=== PATIENT | male | born 1965 | race Caucasian/White ===

== ENCOUNTER → 2016-06-01 | Day surgery (SDC) | payer BC ==
[2016-06-01] VITALS (8 sets, daily range): BP systolic 105–132; BP diastolic 67–74
[~2016-06-01] VITALS: Ht 175.3 cm; Wt 93.0 kg
[~2016-06-01] MED LIST: ANUSOL-HC25 MG RECTAL; BENADRYL25 MG ORAL; DiphenhydrAMINE 50mg/ml Inj IVP PRN; IBUPROFEN600 MG ORAL; IMODIUM A-1 MG/7.5 M PO; IMODIUM MULTI-1 EACH PO; LR 1000ml 1,000 ML IVLG SCH; LR 1000ml ONE; Labetalol 5mg/ml 20ml vial IV PRN; Lidocaine 1% MPF 10mg/ml 5ml ONE; NORCO 10/3251 EA ORAL; OMEPRAZOLE20 M2 ORAL; Propofol 10mg/ml 20ml IV ONE; TAMSULOSIN HCL0.4 MG ORAL
--- NOTE | 2016-06-01 09:48 | Anethesia Preoperative Eval ---
Anesthesia Pre-op PMH/ROS General Date of Evaluation: Jun 01, 2016 Anesthesiologist: Suleman ASA Score: ASA 2 Mallampati Score Class I : Soft palate, uvula, fauces, pillars visible Class II: Soft palate, uvula, fauces visible Class III: Soft palate, base of uvula visible Class IV: Only hard plate visible Mallampati Classification: Class II Surgeon: Darrell Diagnosis: GERD/Screening Surgical Procedure: EGD/ colonoscopy Anesthesia History: none Family History: no anesthesia problems Allergies: Coded Allergies: IBUPROFEN (Verified Allergy, Intermediate, 06/01/16) HIVES Medications: see eMAR Past Medical History Cardiovascular: Reports: other - HLD, Denies: CAD, HTN, MS, arrhythmia, valve dz Pulmonary: Reports: asthma, Denies: COPD, [place], other Gastrointestinal/Genitourinary: Reports: GERD, other - IBS, Denies: CRI, ESRD Neurologic/Psychiatric: Denies: CVA, TIA, dementia, depression/anxiety, other Endocrine: Denies: DM, hypothyroidism, other, steroids HEENT: Denies: [place] (L), [place] (R), cataract (L), cataract (R), glaucoma, other Hematology/Immune: Denies: DVT, anemia, bleeding disorder, other Musculoskeletal/Integumentary: Denies: DDD, DJD, OA, RA, edema, other Other: other - overweight PSxH Narrative: Sinus sx Anesthesia Pre-op Phys. Exam Physician Exam Last Vital Signs Date Time Temp Pulse Resp B/P Pulse Ox O2 Delivery O2 Flow Rate FiO2 06/01/16 09:35 98.1 80 20 116/69 96 Room Air Constitutional: NAD Cardiovascular: RRR Respiratory: CTA Airway Exam Mallampati Score: Class II MO: full ROM: full Teeth: intact Anesthesia Pre-op A/P Labs see chart Studies Pre-op Studies: EKG - sr Risk Assessment & Plan Assessment: ASA II Plan: MAC Status Change Before Surgery: No Pre-Antibiotics Drug: N/A SARAH PEDROZA M.D. Jun 01, 2016 09:48
--- NOTE | 2016-06-01 10:04 | Immediate Post-Op Evaluation ---
Immediate Post-Op Evalulation Immediate Post-Op Evalulation Procedure: EGD and colonoscopy Date of Evaluation: Jun 01, 2016 Time of Evaluation: 11:29 IV Fluids: 600 Blood Products: 0 Estimated Blood Loss: 0 Urinary Output: 0 Blood Pressure Systolic: 119 Blood Pressure Diastolic: 69 Pulse Rate: 88 Respiratory Rate: 17 O2 Sat by Pulse Oximetry: 98 Temperature (Fahrenheit): 97.4 Pain Score (1-10): 0 Nausea: No Vomiting: No Complications 0 Patient Status: awake, reacts, patent, none Hydration Status: adequate Drug: N/A SARAH PEDROZA M.D. Jun 01, 2016 10:04
--- NOTE | 2016-06-01 10:05 | 48 Hour Post Anesthesia Eval ---
Post Anesthesia Evaluation Procedure: EGD and colonoscopy Date of Evaluation: Jun 01, 2016 Blood Pressure Systolic: 117 0: 88 Pulse Rate: 89 Respiratory Rate: 17 O2 Sat by Pulse Oximetry: 99 Airway: patent Nausea: No Vomiting: No Pain Intensity: 0 Hydration Status: adequate Cardiopulmonary Status: at baseline Mental Status/LOC: patient returned to baseline Post-Anesthesia Complications: 0 Follow-up care needed: ready to discharge SARAH PEDROZA M.D. Jun 01, 2016 10:05
--- NOTE | 2016-06-01 10:22 | Short Stay Surgery H&P ---
History of Present Illness History of Present Illness Chief Complaint screening colon HPI Austin Jacome is a 50 year old male who was admitted on for Gerd,Colon Screening Patient History Allergies: Coded Allergies: IBUPROFEN (Verified Allergy, Intermediate, 06/01/16) HIVES PAST MEDICAL HISTORY: (1) Kidney stone (2) Diverticulosis (3) Hemorrhoid (4) Elevated cholesterol (5) Irritable bowel syndrome (IBS) (6) Calculus of kidney and ureter Past Surgeries: Social History: Medication History Scheduled Loperamide Hcl/Simethicone (Imodium Multi-Symptom Rel Cplt), 1 EACH PO PRN, ( Reported) Omeprazole (Omeprazole), Unknown Dose ORAL DAILY, (Reported) Scheduled PRN Diphenhydramine Hcl* (Benadryl*), 25 MG ORAL Q6H PRN for Itching, (Reported) Miscellaneous Medications Loperamide Hcl (Imodium A-D), 1 MG PO, (Reported) Review of Systems Cardiovascular: Reports: no symptoms Respiratory: Reports: no symptoms Skeletal: Reports: no symptoms Gastrointestinal: Reports: no symptoms Genitourinary: Reports: no symptoms Neurologic: Reports: no symptoms Endocrine: Reports: no symptoms Hematologic: Reports: no symptoms Physical Exam Vital Signs Last Vital Signs Date Time Temp Pulse Resp B/P Pulse Ox O2 Delivery O2 Flow Rate FiO2 06/01/16 09:35 98.1 80 20 116/69 96 Room Air Skin: normal HENT: normal Heart: normal Lungs: normal Abdomen: normal Extremities: normal Plan Plan of Care colonoscopy Final Diagnosis: Attestation Are the patient's medical conditions optimized for surgery? Attestation Response: yes MARY TIJERINA Jun 01, 2016 10:22
--- NOTE | 2016-06-01 10:22 | Pre-Procedure Note/Attestation ---
Pre-Procedure Note/Attestation Complete Prior to Procedure Planned Procedure: not applicable Procedure Narrative: colonoscopy Indications for Procedure Pre-Operative Diagnosis: screening Attestation I attest that I discussed the nature of the procedure; its benefits; risks and complications; and alternatives (and the risks and benefits of such alternatives ), prior to the procedure, with the patient (or the patient's legal patient accounting representative). I attest that, if there was a reasonable possibility of needing a blood transfusion, the patient (or the patient's legal patient accounting representative) was given the [facility] standardized written summary, pursuant to the [place] Blood Safety Act ([place] Health and Safety Code # 1645, as amended). I attest that I re-evaluated the patient just prior to the surgery and that there has been no change in the patient's H&P, except as documented below: MARY TIJERINA Jun 01, 2016 10:22
--- NOTE | 2016-06-01 19:58 | Procedure Note ---
DATE OF PROCEDURE: 06/01/2016 SURGEON: Ramon Ramírez M.D. PROCEDURE: Upper endoscopy with biopsy and colonoscopy with biopsy. ANESTHESIA: Per Dr. Carrillo. INSTRUMENT: Olympus adult flexible upper endoscope and colonoscope. INDICATION: 1. Screening colonoscopy evaluation. 2. Chronic diarrhea. REASON FOR PROCEDURE: The procedure, risks, benefits, and possible consequences, including hemorrhage, aspiration, perforation and infection, and alternative treatments, were explained to the patient/legal guardian by Dr. Ramon Ramírez and the patient/legal guardian understood and accepted these risks. DESCRIPTION OF THE PROCEDURE: After informed consent was obtained and the patient was adequately sedated, Olympus upper endoscope was advanced from mouth into the second portion of the duodenum and retroflexion was performed in the stomach. The patient had evidence of diffuse gastritis. Random biopsy from antrum of the stomach was obtained to rule out H. pylori infection. Also, there was evidence of a polyp in the antrum, which was also biopsied in this random biopsy of the stomach. Random biopsy from the duodenum also was obtained for further evaluation of cause of diarrhea. At this time, the upper endoscope was retrieved and the patient was turned over for colonoscopy. First, a rectal exam was performed. The patient had evidence of large external hemorrhoids and also internal hemorrhoids. Then, the scope was advanced from the rectum into the cecum and then subsequently into the terminal ileum. Quality of prep was very good. The patient had some lymphoid aggregates in the terminal ileum, which was biopsied. Random biopsy from the right and left colon was also obtained for evaluation of the chronic diarrhea. The patient had a total of three polyps in this colonoscopy examination, two in the transverse colon, which were small and removed with the cold biopsy forceps technique and one larger one, which was measured about 5 mm removed with the cold snare polypectomy, which was in the descending colon. Retroflexion of rectum showed evidence of internal hemorrhoids. SUMMARY OF FINDINGS: 1. Gastritis with gastric polyps, status post biopsy. 2. Status post random biopsy of the duodenum for workup of diarrhea. 3. Three colonic polyps removed, see above for details. 4. Lymphoid aggregates in the terminal ileum, which was biopsied. 5. Internal and external hemorrhoids. RECOMMENDATIONS: Followup biopsies and treat accordingly. Ramon Dana Ramírez DR: EVA JOB#: [id number] CC:
--- NOTE | 2016-06-02 13:55 | Endoscopy Procedure Note ---
Endoscopy Procedure Note Indication for Procedure: screening colon, chronic diarrhea Procedures Performed: EGD, colonoscopy Operative Findings/Diagnosis: colon polyps Specimen: yes Pt Tolerated Procedure Well: Yes Estimated Blood Loss: none Anesthesiologist: yohannes Anesthesia: MAC Implant(s) used?: No 50 yrs or older w/o bx or poly: No 10yrs. F/U not recommended: Yes If not recommended, why?: Above average risk 10 yrs. F/U needed: Yes 18 years or older w/prev. colo: Yes <3yrs. since last colonoscopy: No MARY TIJERINA Jun 02, 2016 13:55
--- NOTE | 2016-06-30 15:40 | Cardiology Report ---
APPROVED REPORT EKG Measurement Heart [id number] Normal sinus rhythm Normal ECG
== END | disposition home or self-care (01) ==
LOC: GAS 09:02
DX: Z12.11 Encounter for screening for malignant neoplasm of colon (principal); R19.7 Diarrhea, unspecified; D12.3 Benign neoplasm of transverse colon; D12.4 Benign neoplasm of descending colon; K64.4 Residual hemorrhoidal skin tags; K64.8 Other hemorrhoids; K29.50 Unspecified chronic gastritis without bleeding; K21.9 Gastro-esophageal reflux disease without esophagitis; E78.00 Pure hypercholesterolemia, unspecified; J45.909 Unspecified asthma, uncomplicated; E66.3 Overweight; Z87.442 Personal history of urinary calculi; Z88.6 Allergy status to analgesic agent
CPT/HCPCS: 43239; 45380; 45385; 93005; J2704; J7120; 94003; 94150

== ENCOUNTER → 2016-07-02 | Outpatient (CLI) | payer BC ==
[~2016-07-02] MED LIST changes: -DiphenhydrAMINE 50mg/ml Inj IVP PRN; -LR 1000ml 1,000 ML IVLG SCH; -LR 1000ml ONE; -Labetalol 5mg/ml 20ml vial IV PRN; -Lidocaine 1% MPF 10mg/ml 5ml ONE; -Propofol 10mg/ml 20ml IV ONE
--- NOTE | 2016-07-02 14:18 | GI Progress Note ---
Assessment/Plan Problems: (1) Irritable bowel syndrome (IBS) ICD Codes: K58.9 - Irritable bowel syndrome without diarrhea SNOMED: 06782839, 82361101 (2) Colonic polyp ICD Codes: K63.5 - Polyp of colon SNOMED: 04218342 (3) Hemorrhoid ICD Codes: K64.9 - Unspecified hemorrhoids SNOMED: 58226991 (4) Elevated cholesterol ICD Codes: E78.00 - Pure hypercholesterolemia, unspecified SNOMED: 75100061 Status: unchanged Status Narrative Seen with Dr. Ramírez. Assessment/Plan EGD/colonoscopy reviewed with patient. Enterogram trial anusol HC RTC x 2 months repeat colon x 3 years. Subjective Subjective continues to have constant diarrhea, urges 5-6x per day Objective T 97.6 BP 112/69 P 75 97 RA Denies weight loss General Appearance: no apparent distress, alert Cardiovascular: normal rate Respiratory/Chest: normal breath sounds, no respiratory distress Abdominal Exam: normal bowel sounds, non tender, soft Extremities: normal range of motion Objective Date of Service: 06/01/16 Endoscopy Procedure Note Indication for Procedure: screening colon, chronic diarrhea Procedures Performed: EGD, colonoscopy Operative Findings/Diagnosis: colon polyps MARY RAMÍREZ - Jun 02, 2016 13:55 Shanon Chaves N.P. Jul 02, 2016 14:18
[2016-07-02 16:32] VITALS: BP 112/69
== END | disposition home or self-care (01) ==
LOC: PAN 13:33
DX: K58.9 Irritable bowel syndrome, unspecified (principal); K63.5 Polyp of colon; K64.9 Unspecified hemorrhoids; E78.00 Pure hypercholesterolemia, unspecified
CPT/HCPCS: 99211

== ENCOUNTER → 2016-08-19 | Outpatient (CLI) | payer BC ==
--- NOTE | 2016-08-19 15:42 | GI Progress Note ---
Assessment/Plan Problems: (1) Colonic polyp ICD Codes: K63.5 - Polyp of colon SNOMED: 72280739 (2) Irritable bowel syndrome (IBS) ICD Codes: K58.9 - Irritable bowel syndrome without diarrhea SNOMED: 80865152, 05314371 (3) Hemorrhoid ICD Codes: K64.9 - Unspecified hemorrhoids SNOMED: 42071166 (4) Small intestinal bacterial overgrowth ICD Codes: K63.89 - Other specified diseases of intestine SNOMED: 201686799 Status: unchanged Status Narrative Seen with Dr. Ramírez. Assessment/Plan EGD/colonoscopy reviewed with patient. ordered Breath Test [facility] cont Enterogram anusol HC prn RTC post results repeat colon x 3 years. Endoscopy Procedure Note Indication for Procedure: screening colon, chronic diarrhea Procedures Performed: EGD, colonoscopy Operative Findings/Diagnosis: colon polyps MARY RAMÍREZ - Jun 02, 2016 13:55 Subjective Subjective diarrhea, 8x daily abdominal pain Viberzi did not help Enterogram helped more than 50% of the time Anusol provided temporary relief. Objective T 97.6 BP 99/59 P 74 97 RA General Appearance: no apparent distress, alert Cardiovascular: normal rate Respiratory/Chest: normal breath sounds, no respiratory distress Abdominal Exam: normal bowel sounds, non tender, soft Extremities: normal range of motion Shanon Chaves N.P. Aug 19, 2016 15:42
== END | disposition home or self-care (01) ==
LOC: PAN 13:48
DX: K63.5 Polyp of colon (principal); K64.9 Unspecified hemorrhoids; K63.89 Other specified diseases of intestine; K58.0 Irritable bowel syndrome with diarrhea
CPT/HCPCS: 99211

== ENCOUNTER 2016-11-24 10:38 | Outpatient (CLI) | payer BC ==
--- NOTE | 2016-11-24 11:11 | GI Progress Note ---
Assessment/Plan Problems: (1) Small intestinal bacterial overgrowth ICD Codes: K63.89 - Other specified diseases of intestine SNOMED: 956648529 (2) Irritable bowel syndrome (IBS) ICD Codes: K58.9 - Irritable bowel syndrome without diarrhea SNOMED: 57210972, 34146156 (3) Diarrhea ICD Codes: R19.7 - Diarrhea, unspecified SNOMED: 85593932 Status: stable Status Narrative Seen with . Assessment/Plan SIBO positive >> rx Xifaxan RTC x 1 month post tx Subjective Subjective abdominal pain diarrhea Objective T 97.4 BP 108/68 P 58 General Appearance: no apparent distress, alert Cardiovascular: normal rate Respiratory/Chest: normal breath sounds, no respiratory distress Abdominal Exam: normal bowel sounds, non tender, soft Extremities: normal range of motion, non-tender, normal inspection Shanon Chaves N.P. Nov 24, 2016 11:10
[2016-11-24 12:49] VITALS: BP 108/68
== END 2016-11-24 11:10 | disposition home or self-care (01) ==
LOC: PAN 10:38
DX: K58.9 Irritable bowel syndrome, unspecified (principal); A04.8 Other specified bacterial intestinal infections; R19.7 Diarrhea, unspecified
CPT/HCPCS: 99211

== ENCOUNTER 2019-04-12 06:38 | Day surgery (SDC) | payer BC ==
[2019-04-12] VITALS (8 sets, daily range): BP systolic 98–110; BP diastolic 53–77
[~2019-04-12] VITALS: Ht 172.7 cm; Wt 87.1 kg
[2019-04-12] MEDS ORDERED: LR 1000ml 1,000 ML IVLG SCH (07:00)
[2019-04-12] MEDS ORDERED: Propofol 200mg/20ml IV ONE (08:00)
[2019-04-12] MEDS ORDERED: Lidocaine 1% MPF 10mg/ml 5ml ONE (08:00)
[2019-04-12] MEDS ORDERED: LR 1000ml ONE (08:00)
--- NOTE | 2019-04-12 08:09 | Pre-Procedure Note/Attestation ---
Pre-Procedure Note/Attestation Complete Prior to Procedure Planned Procedure: not applicable Procedure Narrative: EGD Colon Indications for Procedure Pre-Operative Diagnosis: Iron def anemia Attestation I attest that I discussed the nature of the procedure; its benefits; risks and complications; and alternatives (and the risks and benefits of such alternatives ), prior to the procedure, with the patient (or the patient's legal public utilities sales representative). I attest that, if there was a reasonable possibility of needing a blood transfusion, the patient (or the patient's legal public utilities sales representative) was given the [facility] standardized written summary, pursuant to the [place] Blood Safety Act ([place] Health and Safety Code # 1645, as amended). I attest that I re-evaluated the patient just prior to the surgery and that there has been no change in the patient's H&P, except as documented below: Pennie Lewis MD Apr 12, 2019 08:09
--- NOTE | 2019-04-12 08:09 | Short Stay Surgery H&P ---
History of Present Illness History of Present Illness Chief Complaint see typed H&P HPI Austin Jacome is a 53 year old male who was admitted on for Abdominal Pain, Anemia Patient History Allergies: Coded Allergies: IBUPROFEN (Verified Allergy, Intermediate, 06/01/16) HIVES LATEX (Verified Allergy, Intermediate, skin irritation, 04/12/19) Medication History Scheduled Loperamide Hcl/Simethicone (Imodium Multi-Symptom Rel Cplt), 1 EACH PO PRN, ( Reported) Omeprazole (Omeprazole), Unknown Dose ORAL DAILY, (Reported) Scheduled PRN Diphenhydramine Hcl* (Benadryl*), 25 MG ORAL Q6H PRN for Itching, (Reported) Discontinued Medications Hydrocortisone Acetate* (Anusol-Hc*), 1 SUPP RECTAL TWICE A DAY, (Reported) Discontinued Reason: Pt stopped taking med Physical Exam Vital Signs Last Vital Signs Date Time Temp Pulse Resp B/P (MAP) Pulse Ox O2 Delivery O2 Flow Rate FiO2 04/12/19 07:27 97.7 77 20 103/56 100 Room Air Plan Attestation Are the patient's medical conditions optimized for surgery? Pennie Lewis MD Apr 12, 2019 08:09
--- NOTE | 2019-04-12 08:47 | Endoscopy Procedure Note ---
Endoscopy Procedure Note General Indication for Procedure: iron def anemia Procedures Performed: EGD, colonoscopy Operative Findings/Diagnosis: gastric polyp, int/ext rhoids Specimen: yes Pt Tolerated Procedure Well: Yes Estimated Blood Loss: none Anesthesia Anesthesiologist: Stefanie Anesthesia: MAC Medications Medication Given: see anesthesia record Inserted Devices Implant(s) used?: No GI Core Measures 50 yrs or older w/o bx or poly: Not Applicable 10yrs. F/U recommended: Not Applicable Pennie Lewis MD Apr 12, 2019 08:47
--- NOTE | 2019-04-12 08:48 | Brief Operative Note ---
Immediate Post Operative Note Operative Note Chief Complaint: iron def Pre-op Diagnosis: Iron def anemia Procedure: esophagogastroduodenoscopy colon Post-op Diagnosis: gastric polyp, int/ext rhoids Surgeon: alonzo Specimen: yes Complications: none Fluids: per anesthesia Implant(s) used?: No Pennie Lewis MD Apr 12, 2019 08:48
--- NOTE | 2019-04-12 08:53 | Immediate Post-Op Evaluation ---
Immediate Post-Op Evalulation Immediate Post-Op Evalulation Procedure: EGD/Colonoscopy Date of Evaluation: Apr 12, 2019 Time of Evaluation: 08:55 IV Fluids: 600 Blood Pressure Systolic: 105 Blood Pressure Diastolic: 64 Pulse Rate: 62 Respiratory Rate: 16 O2 Sat by Pulse Oximetry: 99 Temperature (Fahrenheit): 98.7 Nausea: No Vomiting: No Complications none Patient Status: awake, reacts, patent Hydration Status: adequate Drug: none Stefanie Carmona CRNA Apr 12, 2019 08:53
--- NOTE | 2019-04-12 09:00 | Anethesia Preoperative Eval ---
Anesthesia Pre-op PMH/ROS General Date of Evaluation: Apr 12, 2019 Time of Evaluation: 08:00 Anesthesiologist: Mathew ASA Score: ASA 2 Mallampati Score Class I : Soft palate, uvula, fauces, pillars visible Class II: Soft palate, uvula, fauces visible Class III: Soft palate, base of uvula visible Class IV: Only hard plate visible Mallampati Classification: Class II Surgeon: Jordi Diagnosis: Anemia Surgical Procedure: EGD/Colonoscopy Anesthesia History: none Family History: no anesthesia problems Allergies: Coded Allergies: IBUPROFEN (Verified Allergy, Intermediate, 06/01/16) HIVES LATEX (Verified Allergy, Intermediate, skin irritation, 04/12/19) Medications: see eMAR Patient NPO?: Yes NPO Date: Apr 12, 2019 NPO Time: 00:01 Past Medical History Cardiovascular: Denies: HTN, CAD, CT, valve dz, arrhythmia, other Pulmonary: Denies: asthma, COPD, [place], other Gastrointestinal/Genitourinary: Reports: GERD; Denies: CRI, ESRD, other Neurologic/Psychiatric: Denies: dementia, CVA, depression/anxiety, TIA, other Endocrine: Denies: DM, hypothyroidism, steroids, other HEENT: Denies: cataract (L), cataract (R), glaucoma, [place] (L), [place] (R), other Hematology/Immune: Reports: anemia; Denies: DVT, bleeding disorder, other Musculoskeletal/Integumentary: Denies: OA, RA, DJD, DDD, edema, other PMH Narrative: IBS PSxH Narrative: colonoscopy Anesthesia Pre-op Phys. Exam Physician Exam Last Vital Signs Date Time Temp Pulse Resp B/P (MAP) Pulse Ox O2 Delivery O2 Flow Rate FiO2 04/12/19 08:53 62 16 99 04/12/19 07:27 97.7 103/56 Room Air Constitutional: NAD Neurologic: CN 2-12 intact Cardiovascular: RRR Respiratory: CTA Gastrointestinal: S/NT/ND Airway Exam Mallampati Classification 2 Mallampati Score: Class II MO: full ROM: full Dentures: no upper, no lower Anesthesia Pre-op A/P Studies Pre-op Studies: EKG - SR Risk Assessment & Plan Plan: mac Status Change Before Surgery: No Pre-Antibiotics Drug: none Stefanie Carmona CRNA Apr 12, 2019 09:00
--- NOTE | 2019-04-12 09:55 | 48 Hour Post Anesthesia Eval ---
Post Anesthesia Evaluation Procedure: EGD/Colonoscopy Date of Evaluation: Apr 12, 2019 Time of Evaluation: 09:54 Blood Pressure Systolic: 108 0: 88 Pulse Rate: 55 Respiratory Rate: 14 O2 Sat by Pulse Oximetry: 98 Airway: patent Nausea: No Vomiting: No Hydration Status: adequate Cardiopulmonary Status: stable Mental Status/LOC: patient returned to baseline Post-Anesthesia Complications: none Follow-up care needed: N/A Stefanie Carmona CRNA Apr 12, 2019 09:55
--- NOTE | 2019-04-18 11:45 | Operative Note - Dictated ---
DATE OF OPERATION: 04/12/2019 GASTROENTEROLOGY PROCEDURE REPORT PROCEDURE: Upper gastrointestinal endoscopy with biopsy as well as colonoscopy with biopsy. SURGEON: Pennie Lewis M.D. ANESTHESIA: Please see the separate anesthesiologist notes for details. PRE-ENDOSCOPIC DIAGNOSES: 1. Iron deficiency. 2. Abdominal pain. POST-ENDOSCOPIC DIAGNOSES: 1. Diminutive gastric polyp, status post biopsy removal. 2. Status post random biopsies of the terminal ileum, right colon, left colon, rectum, esophagus, antrum, and duodenum. 3. Internal and external hemorrhoids. DESCRIPTION OF PROCEDURE: The procedure, its risks, indications, alternatives, and possible complications were explained to the patient and informed consent was obtained. The patient was then sedated in the left lateral decubitus position. A diagnostic upper endoscope was introduced through the oropharynx and advanced to the duodenum. The endoscope was then gradually withdrawn. The mucosa examined carefully. Examination of the upper gastrointestinal mucosa revealed a diminutive polyp in the gastric antrum, which was removed with the biopsy forceps. Random biopsies of the duodenum, antrum, and esophagus were also sent to pathology for review. Thereafter, rectal exam was done, which showed external hemorrhoids. The colonoscope was introduced into the rectum and advanced to 15 cm into the terminal ileum without difficulty. The colonoscope was then gradually withdrawn and the mucosa examined carefully. Examination of the mucosa did not reveal any mucosal abnormalities. Random biopsies of the terminal ileum, right colon, left colon, and rectum were sent to pathology for review. Retroflexed view of the rectum revealed internal hemorrhoids. The colonoscope was removed. The patient was sent to recovery in good condition. COMPLICATIONS: None. RECOMMENDATIONS: 1. Follow up biopsy results. 2. Long-term bowel regimen. 3. Outpatient followup. Pennie Lewis M.D. DR: LEONILA JOB#: [id number] CC: Pennie Lewis M.D.; Fax#: [phone]
== END 2019-04-12 10:05 | disposition home or self-care (01) ==
LOC: GAS 06:38
DX: R10.9 Unspecified abdominal pain (principal); K31.7 Polyp of stomach and duodenum; K64.8 Other hemorrhoids; D50.9 Iron deficiency anemia, unspecified; K64.4 Residual hemorrhoidal skin tags; K29.50 Unspecified chronic gastritis without bleeding; Z88.6 Allergy status to analgesic agent; Z91.040 Latex allergy status; K21.9 Gastro-esophageal reflux disease without esophagitis; Z86.010 Personal history of colon polyps
CPT/HCPCS: 43239; 45380; J2704; J7120; 94003; 94150

== ENCOUNTER 2019-04-27 19:03 | Inpatient (IN) | payer BC ==
[~2019-04-27] VITALS: Ht 172.7 cm; Wt 86.2 kg
[2019-04-27 19:20] VITALS: BP 120/80
--- NOTE | 2019-04-27 19:20 | NUR ---
ED Nurse Note: Pt walked in to ED for C/O ABD pain with blood in urine since this morning. PT is alert x4.
--- NOTE | 2019-04-27 19:29 | NUR ---
ED Nurse Note: Blood sample sent down to lab
--- NOTE | 2019-04-27 19:30 | NUR ---
ED Nurse Note: PT taken to CT
--- NOTE | 2019-04-27 19:37 | NUR ---
ED Nurse Note: BACK FROM CT
--- NOTE | 2019-04-27 19:37 | Emergency Room Report ---
History of Present Illness General Chief Complaint: Male Urogenital Problems Source: Patient (Wilma Ordoñez DO) Present Illness HPI Patient presents with complaints of seeing blood in his urine Patient also reports that he has been having nonspecific abdominal discomfort for the past several months saw his GI specialist and had upper and lower endoscopy recently patient was found to have polyps Otherwise denies any vomiting denies any diarrhea Denies any chest pain or shortness of breath denies any pain with urination Patient is not aware of his last hemoglobin count On further discussion reports that he does have bleeding from his external hemorrhoids off and on (Wilma Ordoñez DO) Allergies: Coded Allergies: IBUPROFEN (Verified Allergy, Intermediate, 06/01/16) HIVES LATEX (Verified Allergy, Intermediate, skin irritation, 04/12/19) Patient History Past Medical History: see triage record Reviewed Nursing Documentation: PMH: Agreed; PSxH: Agreed (Wilma Ordoñez DO) Nursing Documentation-PMH Hx Cardiac Problems: No Hx Asthma: Yes - MILD Hx Cancer: No Hx Gastrointestinal Problems: Yes Hx Neurological Problems: No (Wilma Ordoñez DO) Review of Systems All Other Systems: negative except mentioned in HPI (Wilma Ordoñez DO) Physical Exam Vital Signs Date Time Temp Pulse Resp B/P (MAP) Pulse Ox O2 Delivery O2 Flow Rate FiO2 04/27/19 19:13 98.1 86 16 120/80 (93) 98 Room Air Sp02 EP Interpretation: reviewed, normal General Appearance: well appearing, no apparent distress Head: normocephalic, atraumatic Eyes: bilateral eye PERRL, bilateral eye EOMI ENT: hearing grossly normal, normal pharynx, TMs + canals normal, uvula midline Neck: full range of motion, supple, no meningismus, no bony tend Respiratory: lungs clear, normal breath sounds, no rhonchi, no respiratory distress, no retraction, no accessory muscle use Cardiovascular #1: normal peripheral pulses, regular rate, rhythm, no edema, no gallop, no JVD, no murmur Gastrointestinal: normal bowel sounds, non tender, soft, no mass, no organomegaly, non-distended, no guarding, no hernia, no pulsatile mass, no rebound Rectal: other - Patient has report from colonoscopy revealing external hemorrhoids Genitourinary: no CVA tenderness Musculoskeletal: normal inspection Neurologic: motor strength/tone normal, safety inspector III-XII nml as tested, oriented x3 , sensory intact, responsive Psychiatric: mood/affect normal Skin: other - Nonspecific diffuse rash Lymphatic: normal inspection, no adenopathy (Wilma Ordoñez DO) Medical Decision Making Diagnostic Impression: Primary Impression: Anemia Additional Impression: External hemorrhoid ER Course Given the patient's history and presentation initial blood work was initiated Patient's hemoglobin count does return at 7.7 This is significantly different than the last test we have from 2012 Patient's GI specialist who performed a colonoscopy 9 days ago is being contacted at this time patient is hemodynamically stable acute transfusion has not been ordered however patient will require inpatient care Labs Test 04/27/19 19:20 04/27/19 19:29 Urine Color Pale yellow Urine Appearance Clear Urine pH 5 (4.5-8.0) Urine Specific [place] 1.025 (1.005-1.035) Urine Protein Negative (NEGATIVE) Urine Glucose (UA) Negative (NEGATIVE) Urine Ketones 1+ (NEGATIVE) Urine Blood Negative (NEGATIVE) Urine Nitrite Negative (NEGATIVE) Urine Bilirubin Negative (NEGATIVE) Urine Urobilinogen 1 MG/DL (0.0-1.0) Urine Leukocyte Esterase Negative (NEGATIVE) White Blood Count 8.7 K/UL (4.8-10.8) Red Blood Count 4.70 M/UL (4.70-6.10) Hemoglobin 7.7 G/DL (14.2-18.0) Hematocrit 27.9 % (42.0-52.0) Mean Corpuscular Volume 59 FL (80-99) Mean Corpuscular Hemoglobin 16.3 PG (27.0-31.0) Mean Corpuscular Hemoglobin Concent 27.5 G/DL (32.0-36.0) Red Cell Distribution Width 15.8 % (11.6-14.8) Platelet Count 409 K/UL (150-450) Mean Platelet Volume 6.0 FL (6.5-10.1) Neutrophils (%) (Auto) % (45.0-75.0) Lymphocytes (%) (Auto) % (20.0-45.0) Monocytes (%) (Auto) % (1.0-10.0) Eosinophils (%) (Auto) % (0.0-3.0) Basophils (%) (Auto) % (0.0-2.0) Differential Total Cells Counted 100 Neutrophils % (Manual) 55 % (45-75) Lymphocytes % (Manual) 30 % (20-45) Monocytes % (Manual) 3 % (1-10) Eosinophils % (Manual) 11 % (0-3) Basophils % (Manual) 1 % (0-2) Band Neutrophils 0 % (0-8) Platelet Estimate Adequate Platelet Morphology Normal Polychromasia 1+ Hypochromasia 2+ Anisocytosis 1+ Microcytosis 2+ Sodium Level 140 MMOL/L (136-145) Potassium Level 3.8 MMOL/L (3.5-5.1) Chloride Level 106 MMOL/L (98-107) Carbon Dioxide Level 27 MMOL/L (21-32) Anion Gap 7 mmol/L (5-15) Blood Urea Nitrogen 12 mg/dL (7-18) Creatinine 0.9 MG/DL (0.55-1.30) Estimat Glomerular Filtration Rate > 60 mL/min (>60) Glucose Level 102 MG/DL (74-106) Calcium Level 9.1 MG/DL (8.5-10.1) (Wilma Ordoñez DO) ER Course Patient signed out to me. He presents with possible hematuria. Labs show hemoglobin of 7.7. Last known hemoglobin here was in 2012 it was 15.6. Patient is hemodynamically stable. CT scan negative for any perforation. Unknown baseline since hemoglobin from 2012. Because of patient insurance, I will admit patient to service of Dr. Arthur/Dr. Abrams. Dr. Bacon paged by Dr. Ordoñez. no call back. (Juan Pablo Chaves MD) EKG Diagnostic Results Rate: normal Rhythm: NSR ST Segments: no acute changes (Wilma Ordoñez DO) Rhythm Strip Diag. Results EP Interpretation: yes Rate: 70 Rhythm: NSR, no PVC's, no ectopy (Wilma Ordoñez DO) Last Vital Signs Date Time Temp Pulse Resp B/P (MAP) Pulse Ox O2 Delivery O2 Flow Rate FiO2 04/27/19 19:13 98.1 86 16 120/80 (93) 98 Room Air Status: improved (Wilma Ordoñez DO) Status: unchanged (Juan Pablo Chaves MD) Disposition: ADMITTED INPATIENT Condition: Serious Wilma Ordoñez DO Apr 27, 2019 19:37 Juan Pablo Chaves MD Apr 27, 2019 22:19
[2019-04-27 19:49] LABS: ANION GAP 7 mmol/L (5-15); BLOOD UREA NITROGEN 12 mg/dL (7-18); CALCIUM 9.1 MG/DL (8.5-10.1); CARBON DIOXIDE 27 MMOL/L (21-32); CHLORIDE 106 MMOL/L (98-107); CREATININE 0.9 MG/DL (0.55-1.30); POTASSIUM 3.8 MMOL/L (3.5-5.1); SODIUM 140 MMOL/L (136-145)
[2019-04-27 19:50] LABS: HEMATOCRIT 27.9 % (42.0-52.0); HEMOGLOBIN 7.7 G/DL (14.2-18.0); MEAN CORPUSCULAR VOLUME 59 FL (80-99); PLATELET COUNT 409 K/UL (150-450); RED CELL DISTRIBUTION WIDTH 15.8 % (11.6-14.8); WHITE BLOOD COUNT 8.7 K/UL (4.8-10.8)
[2019-04-27 20:00] LABS: APPEARANCE,URINE CLEAR; BILIRUBIN, URINE NEGATIVE (NEGATIVE); COLOR,URINE PALE YELLOW; GLUCOSE, URINE (UA) NEGATIVE (NEGATIVE); KETONES,URINE 1+ (NEGATIVE); LEUKOCYTE ESTERASE ,URINE NEGATIVE (NEGATIVE); NITRITE,URINE NEGATIVE (NEGATIVE); PH,URINE 5 (4.5-8.0); PROTEIN,URINE NEGATIVE (NEGATIVE); UROBILINOGEN,URINE 1 MG/DL (0.0-1.0)
--- NOTE | 2019-04-27 20:03 | Diagnostic Imaging Report ---
Indication: Pain and hematuria Technique: Spiral acquisitions obtained through the abdomen and pelvis. No oral or IV contrast utilized, per urinary stone protocol. Multiplanar reconstructions were generated. Total dose length product 1651 mGycm. CTDIvol(s) 26 mGy. Dose reduction achieved using automated exposure control Comparison: 02/22/2013 Findings: No renal or ureteral calculi, hydronephrosis, or hydroureter demonstrated. Lack of IV contrast limits assessment of the renal parenchyma. No gross renal parenchymal mass or cyst demonstrated. The bladder is unremarkable. The prostate is mildly enlarged, measuring 5 cm transverse diameter. Lack of IV contrast limits assessment of the other solid organs. The liver demonstrates a fat attenuation lesion in segment 2 which measures 13 mm diameter. This demonstrates mostly fat attenuation but central attenuation is somewhat higher than the periphery. This was evident previously but smaller, previously measured 6 mm in diameter. No other focal liver lesions are demonstrated. The gallbladder, bile ducts, pancreas, spleen, adrenals are unremarkable. No retroperitoneal or mesenteric mass or adenopathy. No pelvic mass or adenopathy. There are scattered small colonic diverticula. The appendix is normal. No small bowel distention. The distal esophagus and stomach are unremarkable. There is a small somewhat unusual appearing duodenal diverticulum. No free or loculated intraperitoneal gas or fluid is evident. The included lung bases are clear. The bones demonstrate degenerative spondylosis changes Impression: 13 mm fat-containing left lobe liver lesion. Most likely a benign lipoma, but given interval growth since 2012 and central heterogeneity, the possibility of a liposarcoma should also be considered Negative for evidence of urinary stone disease or obstructive uropathy Mild prostatomegaly Colonic diverticulosis. No evidence of diverticulitis Duodenal diverticulum This agrees with the preliminary interpretation provided overnight by [facility] teleradiology service. The CT scanner at [facility] is accredited by the [employer] and the scans are performed using protocols designed to limit radiation exposure to as low as reasonably achievable to attain images of sufficient resolution adequate for diagnostic evaluation.
[2019-04-27 21:21] LABS: CREATINE KINASE 103 U/L (26-308)
--- NOTE | 2019-04-27 21:50 | NUR ---
ED Nurse Note: PT in bed resting. VSS
[2019-04-27 22:01] VITALS: BP 131/82
[2019-04-27 22:06] LABS: INR 1.1 (0.9-1.1)
[2019-04-27] MEDS ORDERED: Morphine Sulfate 2mg/ml Inj(IV/IM USE ONLY) IVP PRN (22:30)
[2019-04-27] MEDS ORDERED: Miralax 17gm pkt ORAL PRN (22:30)
[2019-04-27] MEDS ORDERED: Zolpidem 5mg tab ORAL PRN (22:30)
[2019-04-27] MEDS ORDERED: LORazepam Inj 2mg/ml 1ml IV PRN (22:30)
--- NOTE | 2019-04-27 23:04 | NUR ---
ED Nurse Note: PT brought up to med surg floor room 411-2 accompanied by administrative tech via gurney in stable condition. PT is alert x4. ambulatory. IV site to left AC remains intact. Report given to TIFFANIE Su. Belonging list signed off.
--- NOTE | 2019-04-27 23:25 | NUR ---
NURSE NOTES: Received patient from ED via gurney, report is given by Lorraine MORENO, patient is awake, alert, ambulatory, no acute distress noted, IV site is clean dry and intact, belongings list reviewed, items are accounted for, and signed, patient has a wallet with credit cards, ID and few dollars, prefers to keep in the room. Oriented patient to the room, call light is within reach, bed is lowered, locked, alarm is on. Will continue to monitor for comfort and safety.
[2019-04-28] VITALS: BP 128/87
[2019-04-28 04:00] VITALS: BP 114/79
--- NOTE | 2019-04-28 07:30 | NUR ---
NURSE NOTES: Received pt from FELICIA MORENO. Pt is eating breakfast. pt is in RA, no SOB or acute respiratory distress noted. pt has intact iv access LAC 20g SL. No complain of pain at this moment. all needs attended, bed is locked and is in the lowest position, call light within easy reach. will continue to monitor.
[2019-04-28 07:37] LABS: HEMATOCRIT 26.9 % (42.0-52.0); HEMOGLOBIN 7.5 G/DL (14.2-18.0); MEAN CORPUSCULAR VOLUME 58 FL (80-99); PLATELET COUNT 402 K/UL (150-450); RED BLOOD COUNT 4.64 M/UL (4.70-6.10); WHITE BLOOD COUNT 6.9 K/UL (4.8-10.8)
[2019-04-28 08:00] VITALS: BP 124/77
[2019-04-28 08:14] LABS: ALANINE AMINOTRANSFERASE 22 U/L (12-78); ALBUMIN 3.4 G/DL (3.4-5.0); ALKALINE PHOSPHATASE 51 U/L (46-116); ANION GAP 8 mmol/L (5-15); ASPARTATE AMINO TRANSFERASE 20 U/L (15-37); BILIRUBIN,TOTAL 0.2 MG/DL (0.2-1.0); BLOOD UREA NITROGEN 11 mg/dL (7-18); CALCIUM 8.8 MG/DL (8.5-10.1); CARBON DIOXIDE 26 MMOL/L (21-32); CHLORIDE 109 MMOL/L (98-107); CHOLESTEROL 103 MG/DL (< 200); CREATININE 0.9 MG/DL (0.55-1.30); HDL CHOLESTEROL 37 MG/DL (40-60); POTASSIUM 4.2 MMOL/L (3.5-5.1); SODIUM 143 MMOL/L (136-145); TRIGLYCERIDES 30 MG/DL (30-150)
[2019-04-28 12:00] VITALS: BP 109/67
--- NOTE | 2019-04-28 12:27 | NUR ---
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 98.0 HR 86 RR 16 B/P 120/86 H/H 7.7/27.9 ABD/PELVIC CT=13 mm fat-containing left lobe liver lesion. Most likely a benign lipoma, but given interval growth since 2012 and central heterogeneity, the possibility of a liposarcoma should also be considered IS: INSERT H/L TYPE AND CROSS ADMITTED TO MED/SURG @ 1511 MED/SURG STATUS DCP RETURN HOME
--- NOTE | 2019-04-28 12:34 | NUR ---
NURSE NOTES: Dr TIJERINA visited pt and is montesinos about HB 7.5 and other lab results an d V/S, no new order to RN, Dr he F/U. Will continue to monitor.
[2019-04-28 16:00] VITALS: BP 104/71
--- NOTE | 2019-04-28 17:34 | History & Physical ---
History and Physical History & Physicial Kulwant Abrams MD Apr 28, 2019 17:34
--- NOTE | 2019-04-28 18:00 | NUR ---
NURSE NOTES: Dr DAVIS visited pt and is aware about HB 7.5, no new order to RN.
--- NOTE | 2019-04-28 19:36 | NUR ---
HAND-OFF: Report given to FRANK MORENO. Pt is awake and stable. Endorsed no BM in my shift, F/U for OB.
--- NOTE | 2019-04-28 19:44 | NUR ---
NURSE NOTES: Received report from TIFFANIE De Oliveira patient in bed, awake and alert and verbally responsive. Breathing on room air. No respiratory distress noted. IV intact and asymptomatic. Bed in the lowest position and locked. call light within reach. will continue to provide plan of care.
[2019-04-28 20:00] VITALS: BP 97/57
[2019-04-28] MEDS ORDERED: Iron Sucrose 100 MG in NS 55 ML IV SCH (21:00)
--- NOTE | 2019-04-28 21:00 | Consultation ---
DATE OF CONSULTATION: 04/28/2019 GASTROENTEROLOGY CONSULTATION CONSULTING PHYSICIAN: Ramon Ramírez M.D. REFERRING PHYSICIAN: Kulwant Abrams M.D. CHIEF COMPLAINT: Anemia. HISTORY OF PRESENT ILLNESS: The patient with a history of chronic diarrhea, endoscopy and colonoscopy in the past. He had colon polyps in the past and H. pylori negative gastritis and the most recent endoscopy and colonoscopy in March [address] Lewis where they found fundic gland polyps, H. pylori negative gastritis and no other findings were found. The patient admitted actually with hematuria and was profoundly anemic. Hemoglobin in the 7 ranges, so GI consult was requested for evaluation. According to the patient, he was scheduled to get an outpatient capsule endoscopy. At this time, mainly his complaint was hematuria. PAST MEDICAL HISTORY: 1. History of chronic diarrhea. 2. Colonic polyps. 3. H. pylori negative gastritis. 4. Irritable bowel syndrome. 5. Small intestinal bacterial overgrowth. ALLERGIES: To ibuprofen, latex. MEDICATIONS: Please see medication reconciliation list. SOCIAL HISTORY: The patient denies any tobacco, alcohol, or drug abuse. FAMILY HISTORY: Noncontributory. REVIEW OF SYSTEMS: A 10-point review of systems was performed and pertinent positives in HPI. PHYSICAL EXAMINATION: VITAL SIGNS: Temperature 97.7, pulse 75, respirations 20, blood pressure is 124/77. HEENT: Normocephalic, atraumatic. Pale conjunctivae. NECK: Supple. No evidence of obvious lymphadenopathy. CARDIOVASCULAR: Regular rate and rhythm. Plus S1 and S2. LUNGS: Clear to auscultation bilaterally. ABDOMEN: Positive bowel sounds. Soft and nontender. No rebound. No guarding. No peritoneal sign. EXTREMITIES: No cyanosis. No clubbing. No edema. LABORATORY DATA: White count 6.9, hemoglobin 7.5, hematocrit 26, and platelet count is 402,000. Chem-7 is grossly normal. ASSESSMENT AND PLAN: This is a 53-year-old male with anemia, possibly secondary to hematuria, status post recent endoscopy and colonoscopy by Dr. Lewis. We recommend to send the stool for OB. Recommend Urology evaluation for hematuria. Monitor hemoglobin and hematocrit , transfuse to keep hemoglobin above 7. We will also recommend repeating iron panel. I want to thank Dr. Abrams for this kind referral. Ramon Dana Ramírez DR: ALAN JOB#: [id number] CC: Kulwant Abrams M.D.; Fax#: [phone]
[2019-04-29] VITALS: BP 113/67
--- NOTE | 2019-04-29 00:15 | History and Physical Report ---
DATE OF ADMISSION: 04/27/2019 CHIEF COMPLAINT: Severe anemia. HISTORY OF PRESENT ILLNESS: This is a 53-year-old gentleman with past medical history significant for IBS, history of asthma, and dyslipidemia, who has presented to the hospital as per the request by Dr. Pennie Lewis after it was noted that the patient has severe anemia. The patient was recently complaining of abdominal discomfort and it been going on for over a month and he had esophagogastroduodenoscopy and colonoscopy done before by Dr. Lewis, which noted the patient has a polyp status post polypectomy. Blood work was noted. The patient became very anemic and subsequently, the patient was advised to take some iron pills. However, the patient started having abdominal discomfort associated with nausea. No vomiting and the patient subsequently was advised to come to the emergency room for further evaluation and possible blood transfusion. Shortly after initial evaluation in the emergency room, the patient was noted to have hemoglobin of 7.7 and subsequently, the patient was admitted to the hospital with severe anemia, possibly due to the GI bleed. PAST MEDICAL HISTORY/PAST SURGICAL HISTORY: As above history of IBS, history of recent polypectomy, asthma, and dyslipidemia. MEDICATIONS: Please refer to medication reconciliatoin. ALLERGIES: Ibuprofen and latex. SOCIAL HISTORY: Denies any smoking, alcohol, or drugs. FAMILY HISTORY: Noncontributory. REVIEW OF SYSTEMS: Mostly as above. Denies any dysuria, frequency, or hematuria. Denies any bright red blood per rectum. Denies any loss of consciousness, however, feeling weak and tired. Denies any palpitation. Denies any fall or head trauma. PHYSICAL EXAMINATION: VITAL SIGNS: On admission from the ER is significant for temperature 98.1, pulse of 86, respirations 16, and blood pressure of 120/80. GENERAL: The patient is awake, responsive, and in no acute distress. HEAD AND NECK: Pupils are reactive to light. Extraocular movements intact. NECK: Supple. No JVD. LUNGS: Good air entry. No wheezing or rales. HEART: Reveals S1, S2. Regular rhythm. No gallops. ABDOMEN: Soft, nondistended, and nontender. No rebound tenderness. No fluid shift. Mildly obese. EXTREMITIES: No cyanosis, clubbing, or edema. NEUROLOGIC: Cranial nerves II through XII are grossly intact. Motor is 5/5 in all extremities. Gait is intact. RECTAL/GENITOURINARY: Refused and deferred. PSYCHIATRIC: Mood and affect is intact. LABORATORY DATA: On admission from the ER, sodium 140, potassium 3.8, chloride 106, bicarb 27, BUN 12, and creatinine 0.9. GFR is greater than 60. Glucose is 102. Calcium is 9.1. Total CK of 103. Troponin 0.024. PT of 11, INR 1.1, and PTT of 28. Urinalysis, +1 ketone, +1 urobilirubin, otherwise all negative. WBC of 8.7, hemoglobin 7.7, hematocrit of 27, and platelet is 409,000. The patient's MCV is 59. He had a CT scan of the abdomen done in the ER and noted to have 13 mm fat containing left liver lesion most likely benign lipoma given the growth signs since 2012 and centrally heterogenic. The possibility of liposarcoma should be considered negative for the evidence of the urinary stone disease or obstructive uropathy, mild prostatomegaly, colonic diverticulosis with no evidence of diverticulitis, and duodenal diverticula. ASSESSMENT: 1. Severe anemia, most likely microcytic hypochromic anemia. 2. History of IBS. 3. Asthma. 4. Dyslipidemia. PLAN: 1. Admit the patient to medical floor. 2. At this time, we will try to avoid blood transfusion. If the hemoglobin becomes less than 7, consider to blood transfusion. 3. Follow up with a GI consultation Dr. Lewis/Dr. Ramírez. 4. Code status is Full Code. 5. Start the patient on iron IV Venofer and we will follow up with the laboratory in the morning. Kulwant Abrams M.D. DR: KEANU JOB#: [id number] CC:
[2019-04-29 04:00] VITALS: BP 122/70
--- NOTE | 2019-04-29 06:31 | Consultation ---
History of Present Illness General Date patient seen: Apr 28, 2019 Chief Complaint: Male Urogenital Problems Present Illness Allergies: Coded Allergies: IBUPROFEN (Verified Allergy, Intermediate, 06/01/16) HIVES LATEX (Verified Allergy, Intermediate, skin irritation, 04/12/19) Medication History Scheduled Loperamide Hcl/Simethicone (Imodium Multi-Symptom Rel Cplt), 1 EACH PO PRN, ( Reported) Omeprazole (Omeprazole), Unknown Dose ORAL DAILY, (Reported) Scheduled PRN Diphenhydramine Hcl* (Benadryl*), 25 MG ORAL Q6H PRN for Itching, (Reported) Patient History Healthcare decision maker Resuscitation status Full Code Advanced Directive on File No Physical Exam Last 24 Hour Vital Signs Date Time Temp Pulse Resp B/P (MAP) Pulse Ox O2 Delivery O2 Flow Rate FiO2 04/29/19 04:00 98.4 66 16 122/70 (87) 98 04/29/19 00:00 97.9 61 16 113/67 (82) 96 04/28/19 21:00 Room Air 04/28/19 20:00 97.7 64 18 97/57 (70) 96 04/28/19 16:00 97.4 69 20 104/71 (82) 100 04/28/19 12:00 98.0 65 19 109/67 (81) 98 04/28/19 09:00 Room Air 04/28/19 08:00 97.7 74 20 124/77 (93) 98 Intake and Output 04/28/19 04/29/19 19:00 07:00 Intake Total 775 ml 360 ml Balance 775 ml 360 ml Intake Oral 775 ml 360 ml # Voids 3 2 Laboratory Tests Test 04/28/19 06:45 White Blood Count 6.9 K/UL (4.8-10.8) Red Blood Count 4.64 M/UL (4.70-6.10) L Hemoglobin 7.5 G/DL (14.2-18.0) L Hematocrit 26.9 % (42.0-52.0) L Mean Corpuscular Volume 58 FL (80-99) L Mean Corpuscular Hemoglobin 16.3 PG (27.0-31.0) L Mean Corpuscular Hemoglobin Concent 28.1 G/DL (32.0-36.0) L Red Cell Distribution Width 19.0 % (11.6-14.8) H Platelet Count 402 K/UL (150-450) Mean Platelet Volume 7.0 FL (6.5-10.1) Neutrophils (%) (Auto) % (45.0-75.0) Lymphocytes (%) (Auto) % (20.0-45.0) Monocytes (%) (Auto) % (1.0-10.0) Eosinophils (%) (Auto) % (0.0-3.0) Basophils (%) (Auto) % (0.0-2.0) Differential Total Cells Counted 100 Neutrophils % (Manual) 54 % (45-75) Lymphocytes % (Manual) 31 % (20-45) Monocytes % (Manual) 9 % (1-10) Eosinophils % (Manual) 5 % (0-3) H Basophils % (Manual) 1 % (0-2) Band Neutrophils 0 % (0-8) Platelet Estimate Adequate Platelet Morphology Normal Hypochromasia 1+ Ovalocytes 1+ Sodium Level 143 MMOL/L (136-145) Potassium Level 4.2 MMOL/L (3.5-5.1) Chloride Level 109 MMOL/L (98-107) H Carbon Dioxide Level 26 MMOL/L (21-32) Anion Gap 8 mmol/L (5-15) Blood Urea Nitrogen 11 mg/dL (7-18) Creatinine 0.9 MG/DL (0.55-1.30) Estimat Glomerular Filtration Rate > 60 mL/min (>60) Glucose Level 96 MG/DL (74-106) Calcium Level 8.8 MG/DL (8.5-10.1) Total Bilirubin 0.2 MG/DL (0.2-1.0) Aspartate Amino Transf (AST/SGOT) 20 U/L (15-37) Alanine Aminotransferase (ALT/SGPT) 22 U/L (12-78) Alkaline Phosphatase 51 U/L (46-116) Total Protein 6.7 G/DL (6.4-8.2) Albumin 3.4 G/DL (3.4-5.0) Globulin 3.3 g/dL Albumin/Globulin Ratio 1.0 (1.0-2.7) Triglycerides Level 30 MG/DL (30-150) Cholesterol Level 103 MG/DL (< 200) LDL Cholesterol 53 mg/dL (<100) HDL Cholesterol 37 MG/DL (40-60) L Cholesterol/HDL Ratio 2.8 (3.3-4.4) L Thyroid Stimulating Hormone (TSH) 2.089 uiU/mL (0.358-3.740) Height (Feet): 5 Height (Inches): 8.00 Weight (Pounds): 190 Medications Current Medications Medications (Trade) Dose Ordered Sig/Yomi Route PRN Reason Start Time Stop Time Status Last Admin Dose Admin Acetaminophen (Tylenol) 650 mg Q4H PRN ORAL fever 04/27/19 22:30 05/27/19 22:29 Dextrose (Dextrose 50%) 25 ml Q30MIN PRN IV Hypoglycemia 04/27/19 22:30 05/27/19 22:29 Dextrose (Dextrose 50%) 50 ml Q30MIN PRN IV Hypoglycemia 04/27/19 22:30 05/27/19 22:29 Iron Sucrose 100 mg/Sodium Chloride 60 ml @ 240 mls/hr BEDTIME IV 04/28/19 21:00 05/02/19 21:14 04/28/19 21:04 Lorazepam (Ativan 2mg/ml 1ml) 0.5 mg Q4H PRN IV For Anxiety 04/27/19 22:30 05/04/19 22:29 Morphine Sulfate (Morphine Sulfate) 1 mg EVERY 4 HOURS PRN IVP For Pain 04/27/19 22:30 05/04/19 22:29 Ondansetron HCl (Zofran) 4 mg Q6H PRN IVP Nausea & Vomiting 04/27/19 22:30 05/27/19 22:29 Pantoprazole (Protonix) 40 mg DAILY ORAL 04/28/19 17:30 05/28/19 17:29 04/28/19 18:46 Polyethylene Glycol (Miralax) 17 gm HSPRN PRN ORAL Constipation 04/27/19 22:30 05/27/19 22:29 Zolpidem Tartrate (Ambien) 5 mg HSPRN PRN ORAL Insomnia 04/27/19 22:30 05/04/19 22:29 Walker Hernandez MD Apr 29, 2019 06:31
--- NOTE | 2019-04-29 06:38 | General Progress Note ---
Assessment/Plan Assessment/Plan: 1. History of chronic diarrhea. 2. Colonic polyps. 3. H. pylori negative gastritis. 4. Irritable bowel syndrome. 5. Small intestinal bacterial overgrowth. 6. anemia 7. liver lesion 8. ? hematuria fu stool og and plan GI procedures if needed needs out patient fu for capsule endoscopy MRI of abd to fu on the liver lesion monitor H&H and transfuse if HGB below 7 fu stool ob Subjective Allergies: Coded Allergies: IBUPROFEN (Verified Allergy, Intermediate, 06/01/16) HIVES LATEX (Verified Allergy, Intermediate, skin irritation, 04/12/19) Objective Last 24 Hour Vital Signs Date Time Temp Pulse Resp B/P (MAP) Pulse Ox O2 Delivery O2 Flow Rate FiO2 04/29/19 04:00 98.4 66 16 122/70 (87) 98 04/29/19 00:00 97.9 61 16 113/67 (82) 96 04/28/19 21:00 Room Air 04/28/19 20:00 97.7 64 18 97/57 (70) 96 04/28/19 16:00 97.4 69 20 104/71 (82) 100 04/28/19 12:00 98.0 65 19 109/67 (81) 98 04/28/19 09:00 Room Air 04/28/19 08:00 97.7 74 20 124/77 (93) 98 Intake and Output 04/28/19 04/29/19 19:00 07:00 Intake Total 775 ml 360 ml Balance 775 ml 360 ml Intake Oral 775 ml 360 ml # Voids 3 2 Laboratory Tests 04/28/19 06:45: White Blood Count 6.9, Red Blood Count 4.64L, Hemoglobin 7.5L, Hematocrit 26.9L , Mean Corpuscular Volume 58L, Mean Corpuscular Hemoglobin 16.3L, Mean Corpuscular Hemoglobin Concent 28.1L, Red Cell Distribution Width 19.0H, Platelet Count 402, Mean Platelet Volume 7.0, Neutrophils (%) (Auto) , Lymphocytes (%) (Auto) , Monocytes (%) (Auto) , Eosinophils (%) (Auto) , Basophils (%) (Auto) , Differential Total Cells Counted 100, Neutrophils % ( Manual) 54, Lymphocytes % (Manual) 31, Monocytes % (Manual) 9, Eosinophils % ( Manual) 5H, Basophils % (Manual) 1, Band Neutrophils 0, Platelet Estimate Adequate, Platelet Morphology Normal, Hypochromasia 1+, Ovalocytes 1+, Sodium Level 143, Potassium Level 4.2, Chloride Level 109H, Carbon Dioxide Level 26, Anion Gap 8, Blood Urea Nitrogen 11, Creatinine 0.9, Estimat Glomerular Filtration Rate > 60, Glucose Level 96, Calcium Level 8.8, Total Bilirubin 0.2, Aspartate Amino Transf (AST/SGOT) 20, Alanine Aminotransferase (ALT/SGPT) 22, Alkaline Phosphatase 51, Total Protein 6.7, Albumin 3.4, Globulin 3.3, Albumin/ Globulin Ratio 1.0, Triglycerides Level 30, Cholesterol Level 103, LDL Cholesterol 53, HDL Cholesterol 37L, Cholesterol/HDL Ratio 2.8L, Thyroid Stimulating Hormone (TSH) 2.089 Height (Feet): 5 Height (Inches): 8.00 Weight (Pounds): 190 Abdomen: non tender, soft Extremities: non-tender Ramon Ramírez MD Apr 29, 2019 06:38
[2019-04-29] MEDS ORDERED: Gadavist 7.5mMol/7.5ml vial IV PRN (06:45)
--- NOTE | 2019-04-29 07:25 | NUR ---
HAND-OFF: Report given to TIFFANIE Santiago.
--- NOTE | 2019-04-29 07:30 | NUR ---
NURSE NOTES: Received patient on bed awake. No SOB or acute distress. IV line intact, no s/s of infiltration. HOB elevated. Bed locked in lowest position. Call light within reach. Will continue plan of care. For MRI of abdomen with contrast, RN and Charge Nurse trying to contact radiology but no one is picking up. Left message, awaiting callback.
[2019-04-29 08:00] VITALS: BP 103/70
--- NOTE | 2019-04-29 08:19 | Pulmonology Progress Note ---
Subjective Allergies: Coded Allergies: IBUPROFEN (Verified Allergy, Intermediate, 06/01/16) HIVES LATEX (Verified Allergy, Intermediate, skin irritation, 04/12/19) Objective Last 24 Hour Vital Signs Date Time Temp Pulse Resp B/P (MAP) Pulse Ox O2 Delivery O2 Flow Rate FiO2 04/29/19 04:00 98.4 66 16 122/70 (87) 98 04/29/19 00:00 97.9 61 16 113/67 (82) 96 04/28/19 21:00 Room Air 04/28/19 20:00 97.7 64 18 97/57 (70) 96 04/28/19 16:00 97.4 69 20 104/71 (82) 100 04/28/19 12:00 98.0 65 19 109/67 (81) 98 04/28/19 09:00 Room Air Intake and Output 04/28/19 04/29/19 19:00 07:00 Intake Total 775 ml 360 ml Balance 775 ml 360 ml Intake Oral 775 ml 360 ml # Voids 3 2 Laboratory Tests 04/29/19 06:45: Stool Occult Blood Negative Current Medications Medications (Trade) Dose Ordered Sig/Yomi Route PRN Reason Start Time Stop Time Status Last Admin Dose Admin Acetaminophen (Tylenol) 650 mg Q4H PRN ORAL fever 04/27/19 22:30 05/27/19 22:29 Dextrose (Dextrose 50%) 25 ml Q30MIN PRN IV Hypoglycemia 04/27/19 22:30 05/27/19 22:29 Dextrose (Dextrose 50%) 50 ml Q30MIN PRN IV Hypoglycemia 04/27/19 22:30 05/27/19 22:29 Gadobutrol (Gadavist) 7.5 mmol NOW PRN IV Radiology Procedure 04/29/19 06:45 05/03/19 06:38 Iron Sucrose 100 mg/Sodium Chloride 60 ml @ 240 mls/hr BEDTIME IV 04/28/19 21:00 05/02/19 21:14 04/28/19 21:04 Lorazepam (Ativan 2mg/ml 1ml) 0.5 mg Q4H PRN IV For Anxiety 04/27/19 22:30 05/04/19 22:29 Morphine Sulfate (Morphine Sulfate) 1 mg EVERY 4 HOURS PRN IVP For Pain 04/27/19 22:30 05/04/19 22:29 Ondansetron HCl (Zofran) 4 mg Q6H PRN IVP Nausea & Vomiting 04/27/19 22:30 05/27/19 22:29 Pantoprazole (Protonix) 40 mg DAILY ORAL 04/28/19 17:30 05/28/19 17:29 04/28/19 18:46 Polyethylene Glycol (Miralax) 17 gm HSPRN PRN ORAL Constipation 04/27/19 22:30 05/27/19 22:29 Zolpidem Tartrate (Ambien) 5 mg HSPRN PRN ORAL Insomnia 04/27/19 22:30 05/04/19 22:29 Walker Hernandez MD Apr 29, 2019 08:18
[2019-04-29 08:51] LABS: BASOPHILS % (AUTO) 0.9 % (0.0-2.0); EOSINOPHILS % (AUTO) 5.7 % (0.0-3.0); HEMATOCRIT 28.7 % (42.0-52.0); LYMPHOCYTES % (AUTO) 31.1 % (20.0-45.0); MEAN CORPUSCULAR VOLUME 59 FL (80-99); MONOCYTES % (AUTO) 8.9 % (1.0-10.0); NEUTROPHILS % (AUTO) 53.5 % (45.0-75.0); PLATELET COUNT 418 K/UL (150-450); RED BLOOD COUNT 4.88 M/UL (4.70-6.10); RED CELL DISTRIBUTION WIDTH 19.5 % (11.6-14.8); WHITE BLOOD COUNT 7.7 K/UL (4.8-10.8)
[2019-04-29 09:27] LABS: ALANINE AMINOTRANSFERASE 23 U/L (12-78); ALBUMIN 3.5 G/DL (3.4-5.0); ALKALINE PHOSPHATASE 46 U/L (46-116); ANION GAP 10 mmol/L (5-15); ASPARTATE AMINO TRANSFERASE 21 U/L (15-37); BILIRUBIN,TOTAL 0.4 MG/DL (0.2-1.0); BLOOD UREA NITROGEN 13 mg/dL (7-18); CALCIUM 9.2 MG/DL (8.5-10.1); CARBON DIOXIDE 27 MMOL/L (21-32); CHLORIDE 108 MMOL/L (98-107); CREATININE 0.9 MG/DL (0.55-1.30); POTASSIUM 4.2 MMOL/L (3.5-5.1); SODIUM 144 MMOL/L (136-145)
[2019-04-29 12:00] VITALS: BP 123/77
--- NOTE | 2019-04-29 13:48 | Cardiology Report ---
APPROVED REPORT EKG Measurement Heart [id number] Poor data quality, interpretation may be adversely affected Normal sinus rhythm Normal ECG
--- NOTE | 2019-04-29 14:33 | NUR ---
CHARGE NURSE NOTE: Pt states that he wants to go home. H@H8.0/28.7. said it is OK to discharge patient. notified.
[2019-04-29] MEDS ORDERED: Iron Sucrose 100 MG in NS 55 ML IV ONE (15:30)
--- NOTE | 2019-04-29 15:36 | Internal Med Progress Note ---
Subjective Date of Service: Apr 29, 2019 Physician Name Victor Manuel Goncalves Attending Physician Kulwant Abrams MD Current Medications Medications (Trade) Dose Ordered Sig/Yomi Route PRN Reason Start Time Stop Time Status Last Admin Dose Admin Acetaminophen (Tylenol) 650 mg Q4H PRN ORAL fever 04/27/19 22:30 05/27/19 22:29 Dextrose (Dextrose 50%) 25 ml Q30MIN PRN IV Hypoglycemia 04/27/19 22:30 05/27/19 22:29 Dextrose (Dextrose 50%) 50 ml Q30MIN PRN IV Hypoglycemia 04/27/19 22:30 05/27/19 22:29 Gadobutrol (Gadavist) 7.5 mmol NOW PRN IV Radiology Procedure 04/29/19 06:45 05/03/19 06:38 Iron Sucrose 100 mg/Sodium Chloride 60 ml @ 240 mls/hr BEDTIME IV 04/30/19 21:00 05/02/19 21:14 Iron Sucrose 100 mg/Sodium Chloride 60 ml @ 240 mls/hr ONCE ONCE IV 04/29/19 15:30 04/29/19 15:44 Lorazepam (Ativan 2mg/ml 1ml) 0.5 mg Q4H PRN IV For Anxiety 04/27/19 22:30 05/04/19 22:29 Morphine Sulfate (Morphine Sulfate) 1 mg EVERY 4 HOURS PRN IVP For Pain 04/27/19 22:30 05/04/19 22:29 Ondansetron HCl (Zofran) 4 mg Q6H PRN IVP Nausea & Vomiting 04/27/19 22:30 05/27/19 22:29 Pantoprazole (Protonix) 40 mg DAILY ORAL 04/28/19 17:30 05/28/19 17:29 04/29/19 09:40 Polyethylene Glycol (Miralax) 17 gm HSPRN PRN ORAL Constipation 04/27/19 22:30 05/27/19 22:29 Zolpidem Tartrate (Ambien) 5 mg HSPRN PRN ORAL Insomnia 04/27/19 22:30 05/04/19 22:29 Allergies: Coded Allergies: IBUPROFEN (Verified Allergy, Intermediate, 06/01/16) HIVES LATEX (Verified Allergy, Intermediate, skin irritation, 04/12/19) ROS Limited/Unobtainable: No Constitutional: Reports: no symptoms HEENT: Reports: no symptoms Cardiovascular: Reports: no symptoms Respiratory: Reports: no symptoms Gastrointestinal/Abdominal: Reports: abdominal pain Genitourinary: Reports: no symptoms Neurologic/Psychiatric: Reports: no symptoms Subjective 53 YO M admitted with severe anemia. Cover for Int Marcelino-Dr Abrams Objective Last Vital Signs Date Time Temp Pulse Resp B/P (MAP) Pulse Ox O2 Delivery O2 Flow Rate FiO2 04/29/19 12:00 96.4 79 18 123/77 (92) 99 04/29/19 09:00 Room Air Laboratory Tests Test 04/29/19 05:55 04/29/19 06:45 White Blood Count 7.7 K/UL (4.8-10.8) Red Blood Count 4.88 M/UL (4.70-6.10) Hemoglobin 8.0 G/DL (14.2-18.0) L Hematocrit 28.7 % (42.0-52.0) L Mean Corpuscular Volume 59 FL (80-99) L Mean Corpuscular Hemoglobin 16.4 PG (27.0-31.0) L Mean Corpuscular Hemoglobin Concent 27.8 G/DL (32.0-36.0) L Red Cell Distribution Width 19.5 % (11.6-14.8) H Platelet Count 418 K/UL (150-450) Mean Platelet Volume 7.1 FL (6.5-10.1) Neutrophils (%) (Auto) 53.5 % (45.0-75.0) Lymphocytes (%) (Auto) 31.1 % (20.0-45.0) Monocytes (%) (Auto) 8.9 % (1.0-10.0) Eosinophils (%) (Auto) 5.7 % (0.0-3.0) H Basophils (%) (Auto) 0.9 % (0.0-2.0) Sodium Level 144 MMOL/L (136-145) Potassium Level 4.2 MMOL/L (3.5-5.1) Chloride Level 108 MMOL/L (98-107) H Carbon Dioxide Level 27 MMOL/L (21-32) Anion Gap 10 mmol/L (5-15) Blood Urea Nitrogen 13 mg/dL (7-18) Creatinine 0.9 MG/DL (0.55-1.30) Estimat Glomerular Filtration Rate > 60 mL/min (>60) Glucose Level 80 MG/DL (74-106) Calcium Level 9.2 MG/DL (8.5-10.1) Total Bilirubin 0.4 MG/DL (0.2-1.0) Aspartate Amino Transf (AST/SGOT) 21 U/L (15-37) Alanine Aminotransferase (ALT/SGPT) 23 U/L (12-78) Alkaline Phosphatase 46 U/L (46-116) Total Protein 6.9 G/DL (6.4-8.2) Albumin 3.5 G/DL (3.4-5.0) Globulin 3.4 g/dL Albumin/Globulin Ratio 1.0 (1.0-2.7) Stool Occult Blood Negative (NEGATIVE) Intake and Output 04/28/19 04/29/19 19:00 07:00 Intake Total 775 ml 360 ml Balance 775 ml 360 ml Intake Oral 775 ml 360 ml # Voids 3 2 Objective PHYSICAL EXAMINATION: GENERAL: The patient is awake, responsive, and in no acute distress. HEAD AND NECK: Pupils are reactive to light. Extraocular movements intact. NECK: Supple. No JVD. LUNGS: Good air entry. No wheezing or rales. HEART: Reveals S1, S2. Regular rhythm. No gallops. ABDOMEN: Soft, nondistended, and nontender. No rebound tenderness. No fluid shift. Mildly obese. EXTREMITIES: No cyanosis, clubbing, or edema. NEUROLOGIC: Cranial nerves II through XII are grossly intact. Motor is 5/5 in all extremities. Gait is intact. RECTAL/GENITOURINARY: Refused and deferred. PSYCHIATRIC: Mood and affect is intact. Assessment/Plan Assessment/Plan ASSESSMENT: 1. Severe anemia, most likely microcytic hypochromic anemia. 2. History of IBS. 3. Asthma. 4. Dyslipidemia. PLAN: 1. Admit the patient to medical floor. 2. At this time, we will try to avoid blood transfusion. If the hemoglobin becomes less than 7, consider to blood transfusion. 3. Follow up with a GI consultation Dr. Lewis/Dr. Ramírez. 4. Code status is Full Code. 5. Start the patient on iron IV Venofer and we will follow up with the laboratory in the morning. Victor Manuel Goncalves MD Apr 29, 2019 15:36
[2019-04-29 16:00] VITALS: BP 127/75
[2019-04-29] MEDS ORDERED: Tubing IV Secondary IV ONE (17:45)
--- NOTE | 2019-04-29 17:45 | NUR ---
NURSE NOTES: Patient discharged to home in stable condition, will drive private vehicle by himself. Belongings accounted for. Discharge instructions given. IV line removed, tolerated well. ID band removed.
--- NOTE | 2019-04-29 19:36 | Discharge Summary ---
Discharge Summary Discharge Summary _ DATE OF ADMISSION: 04/27/2019 DATE OF DISCHARGE: 04/29/2019 DISCHARGED BY: Dr. Abrams REASON FOR ADMISSION: 53 years old male with past medical history significant for IBS, asthma, dyslipidemia, presented to the hospital as per request by dr. Lewis, after patient noted to have severe anemia. Patient recently was complaining of abdominal discomfort. He undergone esophagogastroduodenoscopy and colonoscopy before . During procedure noted a polyp, status post polypectomy. Blood work was done. Patient was very anemic and started on the iron pills. Patient started to have abdominal discomfort associated with the nausea, But no vomiting. Patient subsequently was advised to come to emergency room for further evaluation and possible blood transfusion. Shortly after initial evaluation in emergency room, hemoglobin was found to be 7.7 . Patient subsequently admitted with severe anemia, possibly due to GI bleeding. CONSULTANTS: product safety specialist Dr. Hernandez GI specialist Dr. Lewis [facility] COURSE: Patient admitted to medical surgical floor. Hemoglobin and hematocrit were closely monitored with goal to keep hemoglobin above 7. GI specialist followed. Patient started on the IV Venofer. Stool for occult blood was negative. Prior to discharge hemoglobin 8, hematocrit 28.7. CT of the abdomen and pelvis revealed 13 mm fat-containing left lobe liver lesion. 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 No evidence of urinary stones or obstructive uropathy. Mild prostatomegaly. Colonic diverticulosis without evidence of diverticulitis. Duodenal diverticulum. GI specialist recommended outpatient capsule endoscopy and MRI of the abdomen to follow-up on the liver lesion , which can be done as outpatient. Pain management was addressed as needed. GI prophylaxis provided. Bowel regimen instituted. Respiratory status remained stable. Patient clinically stabilized and was ready for discharge home. FINAL DIAGNOSES: Severe anemia, microcytic hypochromic anemia IBS Colonic polyp H. pylori negative gastritis Small intestinal bacterial overgrowth Liver lesion Asthma Dyslipidemia DISCHARGE MEDICATIONS: See Medication Reconciliation list. DISCHARGE INSTRUCTIONS: Patient was discharged home. Follow-up with a primary care provider in 1 week . Follow-up with GI specialist for outpatient capsule endoscopy. I have been assigned to dictate discharge summary for this account. I was not involved in the patient's management. Haley Landry NP Apr 29, 2019 19:36
--- NOTE | 2019-04-30 11:12 | NUR ---
CASE MANAGEMENT: CM review and clinical information (face sheet/ H&P/ER MD notes/DC summary) faxed to [facility] @ [phone] and [facility] @ [phone].
[2019-04-30] MEDS ORDERED: Iron Sucrose 100 MG in NS 55 ML IV SCH (21:00)
== END 2019-04-29 17:46 | disposition home or self-care (01) | DRG 812 ==
LOC: EMR 21:00 → 4E 22:04 → EDBEDREQ 22:53
DX: D50.9 Iron deficiency anemia, unspecified (principal); R31.9 Hematuria, unspecified; K58.9 Irritable bowel syndrome, unspecified; Z86.010 Personal history of colon polyps; K29.70 Gastritis, unspecified, without bleeding; K76.9 Liver disease, unspecified; J45.909 Unspecified asthma, uncomplicated; E78.5 Hyperlipidemia, unspecified; Z88.6 Allergy status to analgesic agent; Z91.040 Latex allergy status
CPT/HCPCS: 36415; 74176; 80048; 80053; 80061; 81003; 82270; 82550; 84443; 84484; 85007; 85025; 85610; 85730; 86850; 86900; 86901; 93005; 99285